=== PATIENT | female | born 1995 | race Caucasian/White ===

== ENCOUNTER 2021-02-05 19:15 | Inpatient (IN) ==
[2021-02-05] MEDS ORDERED: Buffered Lidocaine 1% SYRIN 1 ml INTRADERM ONE (21:46)
[2021-02-05] MEDS ORDERED: Lactated Ringers 1000 ml BAG 1,000 ML IV ONE (21:46)
[2021-02-05] MEDS ORDERED: Promethazine INJ(RESTRICTED) 25 MG/ML 1 ml VIAL IM ONE (21:50)
[2021-02-05] MEDS ORDERED: Morphine 10 MG/ML VIAL (1 ml) IM ONE (21:50)
[2021-02-05] MEDS ORDERED: Lactated Ringers 1000 ml BAG 1,000 ML IV SCH (22:00)
[2021-02-05] MEDS ORDERED: Nalbuphine 10 MG/ML 1 ML VIAL IV ONE (22:05)
[2021-02-05] MEDS ORDERED: Nalbuphine 10 MG/ML 1 ML VIAL IM ONE (22:05)
[2021-02-06] MEDS ORDERED: OBEPIDURAL 250 ML EPIDURAL ONE (02:46)
[2021-02-06 03:14] LABS: ABS Monocytes 0.8 10^3/ul (0-0.8); ABS Neutrophils 14.6 10^3/ul (1.5-7.7); Eosinophil % 0.1 %; Hematocrit 46 % (35-47); Hemoglobin 15.4 g/dL (12.0-16.0); Lymphocyte % 5.9 %; Mean Corpuscular HGB Conc 34 g/dL (31-36); Mean Corpuscular Hemoglobin 29 pg (27-31); Mean Corpuscular Volume 86 fL (80-97); Mean Platelet Volume 10.1 fL (7.4-10.4); Platelet Count 179 10^3/uL (150-450); Red Blood Count 5.29 10^6 /uL (3.70-4.87); Red Cell Distribution Width 14 % (10-15); White Blood Count 16.4 10^3/uL (3.5-10.8)
[2021-02-06 03:47] LABS: Urine Benzodiazepine Screen None Detected (None Detect); Urine Cannabinoids Screen None Detected (None Detect); Urine Opiates Screen None Detected (None Detect)
[2021-02-06] MEDS ORDERED: Sodium Citrate/Citric Acid LIQ 15 ML UDC PO PRN (05:04)
[2021-02-06] MEDS ORDERED: Lactated Ringers 1000 ml BAG 1,000 ML IV ONE (05:04)
[2021-02-06] MEDS ORDERED: Lactated Ringers 1000 ml BAG 500 ML IV PRN ×2 (05:04)
[2021-02-06] MEDS ORDERED: Phenylephrine 40 mcg/mL 10mL (400mcg) SYRINGE IV PUSH PRN ×2 (05:04)
[2021-02-06] MEDS ORDERED: OBEPIDURAL 250 ML EPIDURAL SCH (06:00)
[2021-02-06] MEDS ORDERED: Lactated Ringers 1000 ml BAG 1,000 ML IV SCH ×2 (06:00→23:00)
[2021-02-06] MEDS ORDERED: Oxytocin in LR 20 UNITS/1,000 ML BAG IVPB SCH ×2 (07:00→23:00)
[2021-02-06] MEDS ORDERED: Lidocaine 2% w/ EPI 1:200,000 MPF 20 ML SDV VIAL ONE ×3 (15:01→19:19)
[2021-02-06] MEDS ORDERED: Phenylephrine 40 mcg/mL 10mL (400mcg) SYRINGE ONE (20:05)
[2021-02-06] MEDS ORDERED: Morphine PF AMP (0.5MG/ML) 5 MG/10 ML AMP ONE (20:05)
[2021-02-06] MEDS ORDERED: Oxytocin 10 UNITS/ML 1 ML VIAL ONE (20:05)
[2021-02-06 20:33] LABS: Hematocrit 38 % (35-47); Hemoglobin 13.1 g/dL (12.0-16.0); Mean Corpuscular HGB Conc 34 g/dL (31-36); Mean Corpuscular Hemoglobin 29 pg (27-31); Mean Corpuscular Volume 85 fL (80-97); Mean Platelet Volume 10.4 fL (7.4-10.4); Platelet Count 159 10^3/uL (150-450); Red Cell Distribution Width 15 % (10-15)
[2021-02-06 20:35] LABS: ABS Lymphocytes 0.8 10^3/ul (1.0-4.8); ABS Monocytes 1.7 10^3/ul (0-0.8); ABS Neutrophils 14.4 10^3/ul (1.5-7.7); Lymphocyte % 4.9 %
[2021-02-06] MEDS: Ampicillin ADVAN 2 GM in NS 0.9% 100 ml BAG 100 ML IVPB SCH (20:50)
[2021-02-06 20:54] LABS: Urine Appearance Cloudy; Urine Bilirubin Negative (Negative); Urine Blood 3+ (Negative); Urine Color Yellow; Urine Glucose Negative (Negative); Urine Ketones 2+ (Negative); Urine Nitrite Negative (Negative); Urine Protein 2+(100 mg/dL) (Negative); Urine Specific Gravity 1.015 (1.002-1.030); Urine Urobilinogen Negative (Negative)
[2021-02-06] MEDS ORDERED: Naloxone 0.4 mg VIAL 0.4 mg/ml 1 ml VIAL IV PRN ×2 (20:59→21:51)
[2021-02-06] MEDS ORDERED: fentaNYL 100 mcg/2 ml 50 MCG/ML VIAL IV PRN (20:59)
[2021-02-06] MEDS ORDERED: Ondansetron 4 mg VIAL 2 MG/ML 2 ml VIAL IV PRN ×2 (20:59→21:51)
[2021-02-06 21:10] LABS: Urine Bacteria Absent (Absent); Urine Red Blood Cell 3+(>10/hpf) (Absent); Urine Squamous Epithelial Cell Present (Absent); Urine Transitional Epithelial Present (Absent); Urine White Blood Cell 3+(>20/hpf) (Absent)
[2021-02-06] MEDS: Gentamicin ADULT 310 MG in NS 0.9% 100 ml BAG 100 ML IVPB SCH (21:16)
[2021-02-06] MEDS: Clindamycin 900 MG/D5W BAG 900 MG/50 ML BAG IVPB SCH (21:33)
[2021-02-06] MEDS ORDERED: DiMENhydriNATE IV 50 mg/ml 1 ml VIAL ONE (21:42)
[2021-02-06] MEDS ORDERED: Acetaminophen IV 1 GM/100ML 100 ML IV ONE (21:46)
[2021-02-06] MEDS ORDERED: oxyCODONE/Acetamin 5/325 mg TAB PO PRN ×2 (21:51)
[2021-02-06] MEDS ORDERED: diPHENhydraMINE IV 50 MG/ML 1 ml VIAL (BENADRYL) IV PRN (21:51)
[2021-02-06] MEDS ORDERED: Glycerin ADULT 2.4 gm SUPP PR PRN (22:47)
[2021-02-06] MEDS ORDERED: Dibucaine 1% OINT 28.35 GM TUBE PR PRN (22:47)
[2021-02-06] MEDS ORDERED: witch hazeL 43% TOP.SOLN 200 ML PHA COMPOUND TOPICAL PRN (22:56)
[2021-02-07] MEDS: Ampicillin ADVAN 2 GM in NS 0.9% 100 ml BAG 100 ML IVPB SCH ×4 (03:11→20:34)
[2021-02-07] MEDS: Clindamycin 900 MG/D5W BAG 900 MG/50 ML BAG IVPB SCH ×3 (05:19→21:01)
[2021-02-07 07:05] LABS: ABS Monocytes 1.4 10^3/ul (0-0.8); ABS Neutrophils 13.9 10^3/ul (1.5-7.7); Eosinophil % 0.2 %; Hematocrit 34 % (35-47); Hemoglobin 11.8 g/dL (12.0-16.0); Lymphocyte % 6.3 %; Mean Corpuscular HGB Conc 35 g/dL (31-36); Mean Corpuscular Hemoglobin 30 pg (27-31); Mean Corpuscular Volume 85 fL (80-97); Platelet Count 136 10^3/uL (150-450); Red Blood Count 4.01 10^6 /uL (3.70-4.87); Red Cell Distribution Width 15 % (10-15); White Blood Count 16.4 10^3/uL (3.5-10.8)
[2021-02-07] MEDS ORDERED: NS 0.9% 100 ml BAG 100 ML ONE (20:48)
[2021-02-07] MEDS: Gentamicin ADULT 310 MG in NS 0.9% 100 ml BAG 100 ML IVPB SCH (21:53)
[2021-02-09 10:13] VITALS: BP 116/77
[2021-02-09] MEDS ORDERED: Scopolamine PATCH Remove NOTE PATCH OFF ONE (21:00)
== END 2021-02-09 20:55 | disposition home or self-care (01) | DRG 540 ==
LOC: MCHOBOUT 19:15 → MCHOB 02-06 02:44
PROVIDERS: ADMIT Midwife; ATTEND Midwife